=== PATIENT | male | born 1965 ===

== ENCOUNTER 2018-05-05 11:44 | Inpatient (IN) ==
[2018-05-05] MEDS ORDERED: PIPERACILLIN/TAZOBACTAM 3,375 MG in SODIUM CHLORIDE 0.9% 100 ML IV ONE (12:16)
[2018-05-05] MEDS ORDERED: traZODone 50 MG TABLET PO PRN (12:38)
[2018-05-05] MEDS ORDERED: GLUCAGON 1 MG VIAL IM PRN (12:38)
[2018-05-05] MEDS ORDERED: ONDANSETRON 4 MG/2 ML VIAL IV PRN (12:38)
[2018-05-05] MEDS ORDERED: DOCUSATE SODIUM 100 MG CAPSULE PO PRN (12:38)
[2018-05-05] MEDS ORDERED: DEXTROSE 50% 25 GM/50 ML VIAL IV PRN (12:38)
[2018-05-05 14:09] LABS: Basophils # 0.1 10*3/uL (0.0-0.2); Basophils % 0.3 % (0.0-0.8); Eosinophils % 0.1 % (0.00-10.9); Hematocrit 38.7 VOL% (42.0-52.0); Hemoglobin 12.3 GM/DL (14.0-18.0); Immature Granulocytes % 0.6 %; Immature Granulocytes Absolute 0.11 #; Lymphocytes # 1.2 10*3/uL (1.4-4.0); Lymphocytes % 6.6 % (21.2-54.2); Mean Corpuscular HGB Conc 31.8 GM/DL (32-36); Mean Corpuscular Hemoglobin 31 PG (27-34); Mean Platelet Volume 9.9 FL (9.6-12.0); Monocytes # 1.2 10*3/uL (0.11-0.8); Monocytes % 6.5 % (1.7-12.7); Neutrophils # 15.3 10*3/uL (1.4-7.4); Neutrophils % 85.9 % (38.7-73.9); Platelet Count 150 T/CUMM (130-400); Red Blood Count 3.99 MC/CUMM (3.8-5.5); Red Cell Distribution Width 14.2 % (9.3-17.3); White Blood Count 17.8 T/CUMM (4-12)
[2018-05-05 14:40] LABS: Albumin 3.4 G/DL (3.4-5.0); Bilirubin,Total 0.5 MG/DL (0.2-1.0); Calcium 9.1 MG/DL (8.5-10.1); Osmolality,Calculated 286.1 MOS/KG (273-304); Total Protein 9.1 G/DL (6.4-8.3)
[2018-05-05 14:46] LABS: Potassium 6.7 MMOL/L (3.5-5.1)
[2018-05-05] MEDS: INSULIN LISPRO 100 UNIT/ML SUBCUT SCH ×2 (16:53→21:17)
[2018-05-06] MEDS ORDERED: cefOXitin 2,000 MG in SYRINGE 1 EACH IV ONE (06:00)
[2018-05-06 07:10] LABS: Calcium 9.2 MG/DL (8.5-10.1); Osmolality,Calculated 282.8 MOS/KG (273-304); Potassium 4.4 MMOL/L (3.5-5.1)
[2018-05-06] MEDS: INSULIN LISPRO 100 UNIT/ML SUBCUT SCH ×4 (07:40→22:13)
[2018-05-06] MEDS: amLODIPine 2.5 MG TABLET PO SCH (08:39)
[2018-05-06] MEDS: PANTOPRAZOLE 40 MG TABLET PO SCH (08:39)
[2018-05-06] MEDS ORDERED: TISSUE ADHESIVE 1 EACH APPLICATOR TOP ONE (09:06)
[2018-05-06] MEDS ORDERED: ETOMIDATE 40 MG/20 ML VIAL IV ONE (09:35)
[2018-05-06] MEDS ORDERED: SEVOFLURANE 1 UNIT/15 MINUTE INH ONE (09:35)
[2018-05-06] MEDS ORDERED: fentaNYL 100 MCG/2 ML VIAL ONE (09:35)
[2018-05-06] MEDS ORDERED: ROCURONIUM 100 MG/10 ML VIAL IV ONE (09:36)
[2018-05-06] MEDS ORDERED: ACETAMINOPHEN 1,000 MG/100 ML VIAL IV ONE (09:36)
[2018-05-06] MEDS ORDERED: SODIUM CHLORIDE 0.9% 500 ML IV ONE (09:36)
[2018-05-06] MEDS ORDERED: ONDANSETRON 4 MG/2 ML VIAL ONE (09:45)
[2018-05-06] MEDS ORDERED: ONDANSETRON 4 MG/2 ML VIAL IV PRN (09:47)
[2018-05-06] MEDS: HYDROmorphone 2 MG/1 ML VIAL IV PRN ×3 (09:52→10:04)
[2018-05-06] MEDS: ACETAMINOPHEN 325 MG TABLET PO PRN ×2 (11:17→16:47)
[2018-05-06] MEDS: AMOXICILLIN/CLAV 875 MG TABLET PO SCH ×2 (11:17→22:12)
[2018-05-07 05:06] LABS: Basophils # 0.1 10*3/uL (0.0-0.2); Basophils % 0.4 % (0.0-0.8); Eosinophils # 0.1 10*3/uL (0.0-0.87); Eosinophils % 0.4 % (0.00-10.9); Hematocrit 40.6 VOL% (42.0-52.0); Hemoglobin 12.7 GM/DL (14.0-18.0); Immature Granulocytes % 0.6 %; Immature Granulocytes Absolute 0.08 #; Lymphocytes # 0.9 10*3/uL (1.4-4.0); Lymphocytes % 6.7 % (21.2-54.2); Mean Corpuscular HGB Conc 31.3 GM/DL (32-36); Mean Corpuscular Hemoglobin 31 PG (27-34); Mean Corpuscular Volume 97.8 FL (87-102); Mean Platelet Volume 10.1 FL (9.6-12.0); Monocytes # 1.3 10*3/uL (0.11-0.8); Monocytes % 9.3 % (1.7-12.7); Neutrophils # 11.2 10*3/uL (1.4-7.4); Neutrophils % 82.6 % (38.7-73.9); Platelet Count 171 T/CUMM (130-400); Red Blood Count 4.15 MC/CUMM (3.8-5.5); Red Cell Distribution Width 14.1 % (9.3-17.3); White Blood Count 13.5 T/CUMM (4-12)
[2018-05-07] MEDS: INSULIN LISPRO 100 UNIT/ML SUBCUT SCH ×2 (07:30→13:16)
[2018-05-07] MEDS: PANTOPRAZOLE 40 MG TABLET PO SCH (09:29)
[2018-05-07] MEDS: amLODIPine 2.5 MG TABLET PO SCH (10:49)
[2018-05-07 11:57] VITALS: BP 128/69
[2018-05-07] MEDS ORDERED: AMOXICILLIN/CLAV 500 MG TABLET PO SCH (17:00)
== END 2018-05-07 12:41 | disposition home or self-care (01) | DRG 338 ==
LOC: EDBD → EDUNIT# → N.ED 11:44 → N.EDINP 12:38 → SUATTDRO 12:38 → N.2E 13:27
PROVIDERS: ADMIT Internal Medicine; ATTEND Internal Medicine Nephrology

== ENCOUNTER 2018-11-01 13:07 | Inpatient (IN) ==
[~2018-11-01 13:07] MED LIST: FAMOTIDINE 20 MG/2 ML VIAL IV ONE; HEPARIN/NACL 0.9% 2 UNITS/ML 1,500 ML IV ONE; HYDROmorphone 2 MG/1 ML VIAL ONE; LIDOCAINE 1% 20 ML VIAL ONE; MIDAZOLAM 2 MG/2 ML VIAL ONE; NITROGLYCERIN DRIP 0 MG/0 ML BOTTLE IV ONE; VERAPAMIL 5 MG/2 ML VIAL ONE; diphenhydrAMINE 50 MG/1 ML VIAL ONE; methylPREDNISolone SOD SUC 125 MG/2 ML VIAL ONE
[2018-11-01] MEDS ORDERED: NITROGLYCERIN SL 0.4 MG TABLET SL PRN (13:22)
[2018-11-01] MEDS ORDERED: DEXTROSE 50% 25 GM/50 ML VIAL IV PRN (13:22)
[2018-11-01] MEDS ORDERED: GLUCAGON 1 MG VIAL IM PRN (13:22)
[2018-11-01] MEDS: HEPARIN DRIP 25,000 UNITS/500 ML PREMIX IV SCH (13:45)
[2018-11-01] MEDS ORDERED: MAGNESIUM SULF RIDER 2 GM in PREMIX 1 EACH IV PRN (14:09)
[2018-11-01] MEDS ORDERED: ACETAMINOPHEN 325 MG TABLET PO PRN (14:09)
[2018-11-01] MEDS ORDERED: POTASSIUM CHLORIDE RIDER 10 MEQ in PREMIX 1 EACH IV PRN (14:09)
[2018-11-01] MEDS ORDERED: MORPHINE 4 MG/1 ML VIAL IV PRN (14:09)
[2018-11-01] MEDS ORDERED: ONDANSETRON 4 MG/2 ML VIAL IV PRN (14:09)
[2018-11-01] MEDS ORDERED: MAGNESIUM SULF RIDER 4 GM in PREMIX 1 EACH IV PRN (14:09)
[2018-11-01] MEDS: INSULIN LISPRO 100 UNIT/ML SUBCUT SCH ×2 (16:53→20:09)
[2018-11-01] MEDS: PANTOPRAZOLE 40 MG TABLET PO SCH (16:58)
[2018-11-01 17:24] LABS: Albumin 3.8 G/DL (3.4-5.0); Bilirubin,Total 0.8 MG/DL (0.2-1.0); Calcium 8.9 MG/DL (8.5-10.1); Osmolality,Calculated 274.1 MOS/KG (273-304); Total Protein 8.9 G/DL (6.4-8.3)
[2018-11-01] MEDS ORDERED: ISOSORBIDE MONONITRATE 30 MG TABLET PO SCH (18:00)
[2018-11-01] MEDS: ZALEPLON 5 MG CAPSULE PO PRN (20:08)
[2018-11-01] MEDS: ROSUVASTATIN 20 MG TABLET PO SCH (20:08)
[2018-11-01] MEDS: ASCORBIC ACID 500 MG TABLET PO SCH (20:08)
[2018-11-01] MEDS ORDERED: CARVEDILOL 6.25 MG TABLET PO SCH (21:00)
[2018-11-01] MEDS ORDERED: RANOLAZINE 500 MG TABLET PO SCH (21:00)
[2018-11-02 06:04] LABS: Basophils % 0.3 % (0.0-0.8); Hematocrit 35.6 VOL% (42.0-52.0); Hemoglobin 11.3 GM/DL (14.0-18.0); Immature Granulocytes % 0.6 %; Immature Granulocytes Absolute 0.05 #; Lymphocytes # 0.8 10*3/uL (1.4-4.0); Lymphocytes % 9.1 % (21.2-54.2); Mean Corpuscular HGB Conc 31.7 GM/DL (32-36); Mean Corpuscular Volume 98.1 FL (87-102); Mean Platelet Volume 11.1 FL (9.6-12.0); Monocytes % 9.4 % (1.7-12.7); Neutrophils % 80.6 % (38.7-73.9); Platelet Count 133 T/CUMM (130-400); Red Blood Count 3.63 MC/CUMM (3.8-5.5); Red Cell Distribution Width 14.5 % (9.3-17.3); White Blood Count 8.6 T/CUMM (4-12)
[2018-11-02 06:46] LABS: Calcium 8.6 MG/DL (8.5-10.1); Osmolality,Calculated 279.1 MOS/KG (273-304); Risk Ratio 3.28; Thyroid Stimulating Hormone 0.524 uIU/ml (0.358-3.74); Total Protein 7.6 G/DL (6.4-8.3); VLDL CHOLESTEROL 23.4 MG/DL
[2018-11-02 06:59] LABS: CKMB % 3.8 %
[2018-11-02 07:04] LABS: Troponin I 31.4 NG/ML (0.00-0.045)
[2018-11-02] MEDS ORDERED: HEPARIN 5,000 UNIT/1 ML VIAL IV ONE (07:32)
[2018-11-02] MEDS: INSULIN LISPRO 100 UNIT/ML SUBCUT SCH ×4 (08:37→21:35)
[2018-11-02] MEDS: ASPIRIN EC 81 MG TABLET PO SCH (09:40)
[2018-11-02] MEDS: ASCORBIC ACID 500 MG TABLET PO SCH ×2 (09:41→21:34)
[2018-11-02] MEDS: PANTOPRAZOLE 40 MG TABLET PO SCH (09:41)
[2018-11-02] MEDS: CARVEDILOL 3.125 MG TABLET PO SCH ×2 (10:06→21:35)
[2018-11-02] MEDS: HEPARIN DRIP 25,000 UNITS/500 ML PREMIX IV SCH (12:11)
[2018-11-02] MEDS ORDERED: SODIUM CHLORIDE 0.9% 500 ML IV ONE (12:32)
[2018-11-02] MEDS: ROSUVASTATIN 20 MG TABLET PO SCH (21:34)
[2018-11-02] MEDS: ZALEPLON 5 MG CAPSULE PO PRN (21:42)
[2018-11-03 02:26] LABS: Basophils # 0.1 10*3/uL (0.0-0.2); Basophils % 0.6 % (0.0-0.8); Eosinophils # 0.1 10*3/uL (0.0-0.87); Eosinophils % 1.3 % (0.00-10.9); Hematocrit 33.9 VOL% (42.0-52.0); Hemoglobin 10.6 GM/DL (14.0-18.0); Immature Granulocytes % 0.8 %; Immature Granulocytes Absolute 0.07 #; Lymphocytes # 1.3 10*3/uL (1.4-4.0); Lymphocytes % 14.8 % (21.2-54.2); Mean Corpuscular HGB Conc 31.3 GM/DL (32-36); Mean Corpuscular Volume 98.8 FL (87-102); Monocytes % 9.1 % (1.7-12.7); NRBC # 0.02 10*3/uL; Neutrophils % 73.4 % (38.7-73.9); Platelet Count 134 T/CUMM (130-400); Red Blood Count 3.43 MC/CUMM (3.8-5.5); Red Cell Distribution Width 14.7 % (9.3-17.3); White Blood Count 8.7 T/CUMM (4-12)
[2018-11-03 02:41] LABS: Calcium 8.1 MG/DL (8.5-10.1); Osmolality,Calculated 277.7 MOS/KG (273-304)
[2018-11-03] MEDS: HEPARIN DRIP 25,000 UNITS/500 ML PREMIX IV SCH ×2 (04:40→14:04)
[2018-11-03] MEDS: INSULIN LISPRO 100 UNIT/ML SUBCUT SCH ×4 (07:04→21:20)
[2018-11-03] MEDS: ASPIRIN EC 81 MG TABLET PO SCH (08:23)
[2018-11-03] MEDS: CARVEDILOL 3.125 MG TABLET PO SCH ×2 (08:24→21:19)
[2018-11-03] MEDS: ASCORBIC ACID 500 MG TABLET PO SCH ×2 (08:24→21:19)
[2018-11-03] MEDS: PANTOPRAZOLE 40 MG TABLET PO SCH (08:24)
[2018-11-03] MEDS ORDERED: BISACODYL 5 MG TABLET PO PRN (08:48)
[2018-11-03] MEDS: ROSUVASTATIN 20 MG TABLET PO SCH (21:19)
[2018-11-03] MEDS: ZALEPLON 5 MG CAPSULE PO PRN ×2 (21:19→21:20)
[2018-11-04] MEDS: HEPARIN DRIP 25,000 UNITS/500 ML PREMIX IV SCH (01:39)
[2018-11-04 05:01] LABS: Basophils % 0.6 % (0.0-0.8); Eosinophils # 0.1 10*3/uL (0.0-0.87); Eosinophils % 1.6 % (0.00-10.9); Hematocrit 35.6 VOL% (42.0-52.0); Hemoglobin 11.3 GM/DL (14.0-18.0); Immature Granulocytes % 0.7 %; Immature Granulocytes Absolute 0.05 #; Lymphocytes % 14.1 % (21.2-54.2); Mean Corpuscular HGB Conc 31.7 GM/DL (32-36); Mean Corpuscular Volume 97.5 FL (87-102); Mean Platelet Volume 10.7 FL (9.6-12.0); Monocytes % 11.2 % (1.7-12.7); Neutrophils % 71.8 % (38.7-73.9); Platelet Count 151 T/CUMM (130-400); Red Blood Count 3.65 MC/CUMM (3.8-5.5); Red Cell Distribution Width 14.6 % (9.3-17.3); White Blood Count 7.1 T/CUMM (4-12)
[2018-11-04 05:20] LABS: Osmolality,Calculated 280.8 MOS/KG (273-304)
[2018-11-04] MEDS ORDERED: DEXTROSE 50% 25 GM/50 ML VIAL IV PRN (07:19)
[2018-11-04] MEDS ORDERED: GLUCAGON 1 MG VIAL IM PRN (07:19)
[2018-11-04] MEDS ORDERED: SODIUM CHLORIDE 0.9% 1,000 ML IV SCH (07:30)
[2018-11-04] MEDS: INSULIN LISPRO 100 UNIT/ML SUBCUT SCH ×4 (07:58→21:27)
[2018-11-04] MEDS: CHLORHEXIDINE 0.12% ORAL RINSE 60 ML BOTTLE SWISH/SPIT SCH ×2 (09:22→21:27)
[2018-11-04] MEDS: PANTOPRAZOLE 40 MG TABLET PO SCH (09:22)
[2018-11-04] MEDS: ASPIRIN EC 81 MG TABLET PO SCH (09:22)
[2018-11-04] MEDS: CARVEDILOL 3.125 MG TABLET PO SCH ×2 (09:22→21:26)
[2018-11-04] MEDS: ASCORBIC ACID 500 MG TABLET PO SCH ×2 (09:23→21:26)
[2018-11-04 09:33] LABS: ABG Base Excess 2.8 MMOL/L (-2.5-2.5); ABG HCO3 26.8 MMOL/L (20-26); ABG Oxygen Saturation 94.4 % (95-100); ABG PCO2 34.6 MM HG (35-48); ABG PH 7.482 (7.35-7.45); ABG PO2 67.7 MM HG (80-95); ABG TCO2 23.1 MMOL/L (23-27); Allen Test Positive; Pt O2 Delivery Device Room Air
[2018-11-04] MEDS: CHLORHEXIDINE 4% SOLN 118 ML BOTTLE TOP SCH ×2 (14:12→21:26)
[2018-11-04] MEDS: ROSUVASTATIN 20 MG TABLET PO SCH (21:26)
[2018-11-04] MEDS: ZALEPLON 5 MG CAPSULE PO PRN (21:29)
[2018-11-05] MEDS: ZALEPLON 5 MG CAPSULE PO PRN (00:18)
[2018-11-05] MEDS ORDERED: VANCOMYCIN 1,000 MG VIAL ONE (04:40)
[2018-11-05] MEDS ORDERED: PAPAVERINE 60 MG/2 ML VIAL ONE (04:40)
[2018-11-05 05:01] LABS: Basophils % 0.4 % (0.0-0.8); Eosinophils # 0.1 10*3/uL (0.0-0.87); Eosinophils % 1.7 % (0.00-10.9); Hematocrit 33.2 VOL% (42.0-52.0); Hemoglobin 10.3 GM/DL (14.0-18.0); Immature Granulocytes % 0.7 %; Immature Granulocytes Absolute 0.05 #; Lymphocytes # 0.9 10*3/uL (1.4-4.0); Lymphocytes % 12.1 % (21.2-54.2); Mean Corpuscular Volume 98.2 FL (87-102); Mean Platelet Volume 10.3 FL (9.6-12.0); Neutrophils % 76.1 % (38.7-73.9); Platelet Count 147 T/CUMM (130-400); Red Blood Count 3.38 MC/CUMM (3.8-5.5); Red Cell Distribution Width 14.8 % (9.3-17.3); White Blood Count 7.5 T/CUMM (4-12)
[2018-11-05] MEDS: CHLORHEXIDINE 4% SOLN 118 ML BOTTLE TOP SCH ×2 (05:15→14:31)
[2018-11-05 05:18] LABS: Calcium 9.1 MG/DL (8.5-10.1)
[2018-11-05] MEDS ORDERED: SUFentanil 250 MCG/5 ML AMP ONE (05:38)
[2018-11-05] MEDS ORDERED: MIDAZOLAM 10 MG/2 ML VIAL ONE (05:38)
[2018-11-05] MEDS ORDERED: AMINOCAPROIC ACID 5,000 MG/20 ML VIAL ONE (05:38)
[2018-11-05] MEDS ORDERED: DIAZEPAM 5 MG TABLET PO ONE (06:00)
[2018-11-05] MEDS ORDERED: CEFUROXIME INJ 1,500 MG in SYRINGE 1 EACH IV ONE (06:30)
[2018-11-05] MEDS ORDERED: NITROGLYCERIN DRIP 50 MG/250 ML BOTTLE IV ONE (06:38)
[2018-11-05] MEDS ORDERED: PHENYLEPHRINE 1 MG/10 ML SYRINGE IV ONE (06:38)
[2018-11-05] MEDS ORDERED: PHENYLEPHRINE DRIP 20 MG/250 ML PREMIX IV ONE (06:38)
[2018-11-05] MEDS ORDERED: HEPARIN/NACL 0.9% 2 UNITS/ML 500 ML IV ONE (06:38)
[2018-11-05 07:52] LABS: ABG Base Excess -0.5 MMOL/L (-2.5-2.5); ABG PCO2 33.3 MM HG (35-48); ABG PH 7.446 (7.35-7.45); ABG TCO2 20.6 MMOL/L (23-27); Glucose Heart Surgery 95 MG/DL (74-106); Hematocrit Heart Surgery 33.4 PERCENT (42-52); Hemoglobin Heart Surgery 10.8 G/DL (14.0-18.0); Ionized Calcium Arterial 1.09 MMOL/L (1.21-1.46); PCO2 Patient Temp Arterial 33.3 MMHG; PH Patient Temp Arterial 7.446; Patient Temperature 37 CELCIUS; Potassium Heart/CVR 4.1 MMOL/L (3.5-5.1); Sodium Heart/CVR 135 MMOL/L (135-145)
[2018-11-05] MEDS ORDERED: SODIUM BICARBONATE 50 MEQ/50 ML VIAL IV ONE ×6 (09:05→18:30)
[2018-11-05] MEDS ORDERED: NITROPRUSSIDE 50 MG/2 ML VIAL ONE (09:05)
[2018-11-05] MEDS ORDERED: PHENYLEPHRINE DRIP 40 MG/250 ML PREMIX IV ONE (09:05)
[2018-11-05] MEDS ORDERED: POTASSIUM CHLORIDE RIDER 100 ML IV ONE (09:05)
[2018-11-05] MEDS ORDERED: CALCIUM CHLORIDE 1,000 MG/10 ML SYRINGE IV ONE (09:05)
[2018-11-05 09:36] LABS: Hemoglobin Heart Surgery 7.8 G/DL (14.0-18.0); PCO2 Patient Temp Venous 25.8 MM HG; PH Patient Temp Venous 7.54; PO2 Patient Temp Venous 40.3 MM HG; Potassium Heart/CVR 4.9 MMOL/L (3.5-5.1); VBG Base Excess -0.8 MEQ/L (0-4); VBG HCO3 22.1 MEQ/L (24-28); VBG Oxygen Saturation 84.8 %; VBG PCO2 29.4 MMHG (41-51); VBG PH 7.494; VBG PO2 49.7 MMHG (17-40)
[2018-11-05] MEDS ORDERED: ALBUMIN 5% 12.5 GM/250 ML VIAL IV ONE ×2 (09:40→10:27)
[2018-11-05] MEDS ORDERED: DOBUTamine 500 MG/250 ML PREMIX IV ONE ×2 (09:57→11:49)
[2018-11-05 10:04] LABS: PCO2 Patient Temp Venous 27.6 MM HG; PH Patient Temp Venous 7.448; Potassium Heart/CVR 4.1 MMOL/L (3.5-5.1); VBG Base Excess -4.6 MEQ/L (0-4); VBG HCO3 18.7 MEQ/L (24-28); VBG Oxygen Saturation 78.5 %; VBG PCO2 27.6 MMHG (41-51); VBG PH 7.448
[2018-11-05] MEDS ORDERED: MANNITOL 100 GM/500 ML BAG IV ONE (10:26)
[2018-11-05] MEDS ORDERED: DEXTROSE 5% KCL 20 MEQ 20 MEQ/1,000 ML BAG IV ONE (10:26)
[2018-11-05] MEDS ORDERED: HEPARIN 10,000 UNIT/10 ML VIAL ONE (10:27)
[2018-11-05] MEDS ORDERED: FUROSEMIDE 20 MG/2 ML VIAL ONE (10:27)
[2018-11-05] MEDS ORDERED: PROTAMINE SULFATE 50 MG/5 ML VIAL IV ONE (10:28)
[2018-11-05] MEDS ORDERED: PROTAMINE SULFATE 250 MG/25 ML VIAL IV ONE (10:28)
[2018-11-05] MEDS ORDERED: methylPREDNISolone SOD SUC 1,000 MG/8 ML VIAL ONE (10:28)
[2018-11-05] MEDS ORDERED: MAGNESIUM SULFATE 5 GM/10 ML VIAL IV ONE (10:28)
[2018-11-05 11:13] LABS: ABG Base Excess -4.7 MMOL/L (-2.5-2.5); ABG HCO3 20.5 MMOL/L (20-26); ABG PCO2 34.2 MM HG (35-48); ABG PH 7.373 (7.35-7.45); ABG TCO2 18.6 MMOL/L (23-27); Glucose Heart Surgery 164 MG/DL (74-106); Hematocrit Heart Surgery 25.1 PERCENT (42-52); Hemoglobin Heart Surgery 8.1 G/DL (14.0-18.0); Ionized Calcium Arterial 1.09 MMOL/L (1.21-1.46); PCO2 Patient Temp Arterial 34.2 MMHG; PH Patient Temp Arterial 7.373; Patient Temperature 37 CELCIUS; Potassium Heart/CVR 4.4 MMOL/L (3.5-5.1); Sodium Heart/CVR 134 MMOL/L (135-145)
[2018-11-05] MEDS ORDERED: THROMBIN TOPICAL (RECOMBINANT) 5,000 UNIT VIAL TOP ONE (11:35)
[2018-11-05] MEDS ORDERED: AMIODARONE 450 MG/9 ML VIAL IV ONE (11:48)
[2018-11-05] MEDS ORDERED: EPINEPHrine 1 MG/ML VIAL ONE (12:10)
[2018-11-05] MEDS: PHENYLEPHRINE DRIP 40 MG/250 ML PREMIX IV PRN ×2 (12:35→17:00)
[2018-11-05] MEDS ORDERED: CALCIUM CHLORIDE 1,000 MG/10 ML SYRINGE IV PRN (12:47)
[2018-11-05] MEDS ORDERED: INSULIN REGULAR 100 UNIT/ML IV ONE (12:47)
[2018-11-05] MEDS ORDERED: DEXTROSE 50% 25 GM/50 ML VIAL IV PRN ×2 (12:47)
[2018-11-05] MEDS ORDERED: MIDAZOLAM 10 MG/2 ML VIAL IV PRN (12:47)
[2018-11-05] MEDS ORDERED: MAGNESIUM SULF RIDER 4 GM in PREMIX 1 EACH IV PRN (12:47)
[2018-11-05] MEDS ORDERED: ACETAMINOPHEN 650 MG SUPP RECTAL PRN (12:47)
[2018-11-05] MEDS ORDERED: MAGNESIUM SULF RIDER 2 GM in PREMIX 1 EACH IV PRN (12:47)
[2018-11-05] MEDS ORDERED: VECURONIUM 10 MG VIAL IV PRN ×2 (12:47)
[2018-11-05] MEDS ORDERED: ONDANSETRON 4 MG/2 ML VIAL IV PRN (12:47)
[2018-11-05] MEDS ORDERED: NITROPRUSSIDE 100 MG in DEXTROSE 5% 250 ML IV PRN (12:47)
[2018-11-05] MEDS ORDERED: LACTATED RINGERS 250 ML IV PRN (12:47)
[2018-11-05] MEDS ORDERED: MORPHINE 10 MG/1 ML VIAL IV PRN (12:47)
[2018-11-05 12:54] LABS: ABG Base Excess -3.1 MMOL/L (-2.5-2.5); ABG HCO3 21.8 MMOL/L (20-26); ABG Oxygen Saturation 99.4 % (95-100); ABG PCO2 33.3 MM HG (35-48); ABG PH 7.408 (7.35-7.45); ABG TCO2 19.6 MMOL/L (23-27); Glucose Heart Surgery 243 MG/DL (74-106); Hematocrit Heart Surgery 24.6 PERCENT (42-52); Hemoglobin Heart Surgery 7.9 G/DL (14.0-18.0); Potassium Heart/CVR 4.8 MMOL/L (3.5-5.1)
[2018-11-05] MEDS ORDERED: SEVOFLURANE 1 UNIT/15 MINUTE INH ONE (13:00)
[2018-11-05] MEDS ORDERED: ePHEDrine 50 MG/ML AMP ONE (13:00)
[2018-11-05] MEDS ORDERED: AMIODARONE INJ 450 MG in DEXTROSE 5% 241 ML IV SCH (13:00)
[2018-11-05] MEDS ORDERED: CALCIUM CHLORIDE 1,000 MG/10 ML VIAL IV ONE (13:00)
[2018-11-05] MEDS ORDERED: EPINEPHrine 1 MG/10 ML SYRINGE ONE (13:00)
[2018-11-05] MEDS ORDERED: SODIUM CHLORIDE 0.9% 200 ML IV ONE (13:01)
[2018-11-05] MEDS ORDERED: ETOMIDATE 40 MG/20 ML VIAL IV ONE (13:01)
[2018-11-05] MEDS ORDERED: AMIODARONE 150 MG/3 ML VIAL ONE ×2 (13:01→18:45)
[2018-11-05] MEDS ORDERED: SODIUM CHLORIDE 0.9% 250 ML IV ONE (13:01)
[2018-11-05] MEDS ORDERED: GLYCOPYRROLATE 0.4 MG/2 ML VIAL ONE (13:01)
[2018-11-05] MEDS ORDERED: SODIUM CHLORIDE 0.9% 1,000 ML IV ONE (13:01)
[2018-11-05 13:10] LABS: Troponin I 19.4 NG/ML (0.00-0.045)
[2018-11-05 13:17] LABS: Albumin 2.9 G/DL (3.4-5.0); Bilirubin,Total 0.9 MG/DL (0.2-1.0); Calcium 7.9 MG/DL (8.5-10.1); Osmolality,Calculated 290.8 MOS/KG (273-304)
[2018-11-05 13:35] LABS: Basophils % 0.3 % (0.0-0.8); Eosinophils # 0.1 10*3/uL (0.0-0.87); Eosinophils % 0.5 % (0.00-10.9); Hematocrit 24.1 VOL% (42.0-52.0); Hemoglobin 7.6 GM/DL (14.0-18.0); Immature Granulocytes % 1.2 %; Immature Granulocytes Absolute 0.18 #; Lymphocytes # 1.6 10*3/uL (1.4-4.0); Lymphocytes % 10.6 % (21.2-54.2); Mean Corpuscular HGB Conc 31.5 GM/DL (32-36); Mean Corpuscular Volume 100.8 FL (87-102); Monocytes % 6.1 % (1.7-12.7); Neutrophils % 81.3 % (38.7-73.9); Platelet Count 139 T/CUMM (130-400); Red Blood Count 2.39 MC/CUMM (3.8-5.5)
[2018-11-05 14:12] LABS: INR 1.2; PT Patient Result 13.1 SECS; Partial Thromboplastin Time 27.9 SECS (0-40)
[2018-11-05] MEDS: INSULIN LISPRO 100 UNIT/ML SUBCUT SCH ×2 (14:29→14:30)
[2018-11-05] MEDS: ASPIRIN EC 81 MG TABLET PO SCH (14:30)
[2018-11-05] MEDS: ASCORBIC ACID 500 MG TABLET PO SCH (14:31)
[2018-11-05] MEDS: PANTOPRAZOLE 40 MG TABLET PO SCH (14:31)
[2018-11-05] MEDS: CHLORHEXIDINE 0.12% ORAL RINSE 60 ML BOTTLE SWISH/SPIT SCH ×2 (14:31→21:44)
[2018-11-05] MEDS: CARVEDILOL 3.125 MG TABLET PO SCH (14:31)
[2018-11-05] MEDS: SODIUM CHLORIDE 0.45% 1,000 ML IV SCH ×2 (14:33)
[2018-11-05] MEDS ORDERED: SODIUM BICARB INJ 150 MEQ in STERILE WATER INJ 850 ML IV SCH (15:00)
[2018-11-05] MEDS: INSULIN REGULAR DRIP 100 ML IV SCH ×2 (15:04→20:51)
[2018-11-05] MEDS: INSULIN REGULAR 100 UNIT/ML IV PRN ×3 (15:48→20:05)
[2018-11-05] MEDS ORDERED: VECURONIUM 10 MG VIAL IV ONE (16:18)
[2018-11-05] MEDS ORDERED: methylPREDNISolone SOD SUC 125 MG/2 ML VIAL IV ONE (16:21)
[2018-11-05 16:23] LABS: ABG Base Excess -11.9 MMOL/L (-2.5-2.5); ABG HCO3 14.4 MMOL/L (20-26); ABG Oxygen Saturation 96.7 % (95-100); ABG PCO2 34.3 MM HG (35-48); ABG PH 7.242 (7.35-7.45); ABG PO2 110.6 MM HG (80-95); ABG TCO2 15.5 MMOL/L (23-27)
[2018-11-05 16:54] LABS: ABG HCO3 14.4 MMOL/L (20-26); ABG PCO2 34.3 MM HG (35-48); ABG PH 7.242 (7.35-7.45); ABG PO2 110.6 MM HG (80-95)
[2018-11-05 16:55] LABS: ABG Base Excess -11.9 MMOL/L (-2.5-2.5); ABG Oxygen Saturation 96.7 % (95-100); ABG TCO2 15.5 MMOL/L (23-27)
[2018-11-05 16:56] LABS: Glucose Heart Surgery 312 MG/DL (74-106); Potassium Heart/CVR 4.5 MMOL/L (3.5-5.1)
[2018-11-05 17:50] LABS: ABG Base Excess -9.9 MMOL/L (-2.5-2.5); ABG HCO3 16.5 MMOL/L (20-26); ABG Oxygen Saturation 97.1 % (95-100); ABG PCO2 32.2 MM HG (35-48); ABG PH 7.295 (7.35-7.45); ABG TCO2 14.4 MMOL/L (23-27); Glucose Heart Surgery 316 MG/DL (74-106); Hematocrit Heart Surgery 32.4 PERCENT (42-52); Hemoglobin Heart Surgery 10.5 G/DL (14.0-18.0); Potassium Heart/CVR 4.2 MMOL/L (3.5-5.1)
[2018-11-05] MEDS: MIDAZOLAM 2 MG/2 ML VIAL IV PRN ×2 (18:00→22:11)
[2018-11-05] MEDS ORDERED: AMIODARONE INJ 50 MG in DEXTROSE 5% 100 ML IV ONE (18:44)
[2018-11-05] MEDS: POTASSIUM CHLORIDE RIDER 10 MEQ in PREMIX 1 EACH IV PRN ×2 (18:50→22:14)
[2018-11-05] MEDS: AMIODARONE INJ 450 MG in DEXTROSE 5% 241 ML IV SCH (19:00)
[2018-11-05 19:16] LABS: ABG Base Excess -6.3 MMOL/L (-2.5-2.5); ABG HCO3 19.3 MMOL/L (20-26); ABG Oxygen Saturation 97.5 % (95-100); ABG PCO2 35.3 MM HG (35-48); ABG PH 7.336 (7.35-7.45); ABG TCO2 17.3 MMOL/L (23-27); Glucose Heart Surgery 311 MG/DL (74-106); Hematocrit Heart Surgery 31.2 PERCENT (42-52); Hemoglobin Heart Surgery 10.1 G/DL (14.0-18.0); Potassium Heart/CVR 3.9 MMOL/L (3.5-5.1)
[2018-11-05] MEDS ORDERED: SODIUM BICARBONATE 50 MEQ/50 ML VIAL IV PRN (19:32)
[2018-11-05] MEDS: POTASSIUM CHLORIDE RIDER 20 MEQ in PREMIX 1 EACH IV PRN ×2 (20:20→21:43)
[2018-11-05] MEDS: MORPHINE 4 MG/1 ML VIAL IV PRN (20:34)
[2018-11-05] MEDS: PHENYLEPHRINE INJ 160 MG in SODIUM CHLORIDE 0.9% 234 ML IV PRN (20:54)
[2018-11-05 21:02] LABS: ABG Base Excess -5.7 MMOL/L (-2.5-2.5); ABG HCO3 19.8 MMOL/L (20-26); ABG Oxygen Saturation 98.3 % (95-100); ABG PCO2 33.1 MM HG (35-48); ABG PH 7.365 (7.35-7.45); ABG TCO2 17.2 MMOL/L (23-27); Glucose Heart Surgery 269 MG/DL (74-106); Hematocrit Heart Surgery 31.5 PERCENT (42-52); Hemoglobin Heart Surgery 10.2 G/DL (14.0-18.0); Potassium Heart/CVR 3.9 MMOL/L (3.5-5.1)
[2018-11-05] MEDS: CEFUROXIME INJ 1,500 MG in SYRINGE 1 EACH IV SCH (21:44)
[2018-11-05] MEDS: DORZOLAMIDE/TIMOLOL OPH SOLN 10 ML BOTTLE BOTH EYES SCH (21:44)
[2018-11-05] MEDS: LATANOPROST 0.005% OPH SOLN 2.5 ML BOTTLE LEFT EYE SCH (21:45)
[2018-11-05 22:15] LABS: CKMB % 3.9 %
[2018-11-05 22:18] LABS: Troponin I 25.2 NG/ML (0.00-0.045)
[2018-11-06] MEDS ORDERED: methylPREDNISolone SOD SUC 125 MG/2 ML VIAL IV ONE
[2018-11-06 00:09] LABS: ABG HCO3 20.7 MMOL/L (20-26); ABG Oxygen Saturation 97.7 % (95-100); ABG PH 7.416 (7.35-7.45); ABG PO2 114.1 MM HG (80-95); ABG TCO2 21.7 MMOL/L (23-27); Glucose Heart Surgery 191 MG/DL (74-106); Hemoglobin Heart Surgery 12.9 G/DL (14.0-18.0); Potassium Heart/CVR 3.9 MMOL/L (3.5-5.1)
[2018-11-06] MEDS: POTASSIUM CHLORIDE RIDER 20 MEQ in PREMIX 1 EACH IV PRN ×2 (00:20→04:14)
[2018-11-06] MEDS: POTASSIUM CHLORIDE RIDER 10 MEQ in PREMIX 1 EACH IV PRN (00:52)
[2018-11-06 04:08] LABS: ABG HCO3 25.1 MMOL/L (20-26); ABG Oxygen Saturation 97.7 % (95-100); ABG PCO2 33.4 MM HG (35-48); ABG PH 7.494 (7.35-7.45); ABG PO2 107.8 MM HG (80-95); ABG TCO2 26.1 MMOL/L (23-27); Glucose Heart Surgery 113 MG/DL (74-106); Hemoglobin Heart Surgery 9.7 G/DL (14.0-18.0); Potassium Heart/CVR 4.3 MMOL/L (3.5-5.1)
[2018-11-06] MEDS: INSULIN REGULAR DRIP 100 ML IV SCH (04:10)
[2018-11-06 04:14] LABS: Basophils % 0.1 % (0.0-0.8); Hematocrit 28.1 VOL% (42.0-52.0); Hemoglobin 9.1 GM/DL (14.0-18.0); Immature Granulocytes % 0.6 %; Immature Granulocytes Absolute 0.09 #; Lymphocytes # 0.5 10*3/uL (1.4-4.0); Lymphocytes % 3.6 % (21.2-54.2); Mean Corpuscular HGB Conc 32.4 GM/DL (32-36); Mean Corpuscular Volume 95.9 FL (87-102); Mean Platelet Volume 10.5 FL (9.6-12.0); NRBC # 0.03 10*3/uL; Neutrophils % 88.7 % (38.7-73.9); Platelet Count 147 T/CUMM (130-400); Red Blood Count 2.93 MC/CUMM (3.8-5.5); Red Cell Distribution Width 15.8 % (9.3-17.3)
[2018-11-06] MEDS: AMIODARONE INJ 450 MG in DEXTROSE 5% 241 ML IV SCH ×2 (04:15→10:00)
[2018-11-06 04:38] LABS: Bilirubin,Direct 0.34 MG/DL (0.0-0.20); Bilirubin,Total 0.7 MG/DL (0.2-1.0); Calcium 7.7 MG/DL (8.5-10.1); Osmolality,Calculated 296.1 MOS/KG (273-304); Total Protein 6.2 G/DL (6.4-8.3)
[2018-11-06 04:39] LABS: Anisocytosis Slight; Lymphocytes 3 % (20-55); Segmented Neutrophils 93 % (50-85); Total Cells Counted 100
[2018-11-06 04:40] LABS: Microcytosis Slight; Polychromasia Slight
[2018-11-06 04:41] LABS: Ovalocytes Slight; Platelet Estimate Normal
[2018-11-06 05:40] LABS: CKMB % 3.7 %
[2018-11-06 05:43] LABS: Troponin I 23.5 NG/ML (0.00-0.045)
[2018-11-06 08:12] LABS: ABG Base Excess 1.5 MMOL/L (-2.5-2.5); ABG HCO3 24.3 MMOL/L (20-26); ABG Oxygen Saturation 97.4 % (95-100); ABG PH 7.498 (7.35-7.45); ABG PO2 109.3 MM HG (80-95); ABG TCO2 25.3 MMOL/L (23-27); Glucose Heart Surgery 155 MG/DL (74-106); Hemoglobin Heart Surgery 11.4 G/DL (14.0-18.0); Potassium Heart/CVR 5.7 MMOL/L (3.5-5.1)
[2018-11-06] MEDS: CEFUROXIME INJ 1,500 MG in SYRINGE 1 EACH IV SCH ×2 (08:15→21:01)
[2018-11-06] MEDS: INSULIN REGULAR 100 UNIT/ML SUBCUT SCH ×4 (08:30→20:50)
[2018-11-06] MEDS: CHLORHEXIDINE 0.12% ORAL RINSE 60 ML BOTTLE SWISH/SPIT SCH ×2 (08:35→21:05)
[2018-11-06] MEDS: DORZOLAMIDE/TIMOLOL OPH SOLN 10 ML BOTTLE BOTH EYES SCH ×2 (08:47→21:03)
[2018-11-06] MEDS ORDERED: LIDOCAINE 100 MG/5 ML SYRINGE IV ONE ×2 (09:21→16:30)
[2018-11-06] MEDS ORDERED: LIDOCAINE 100 MG/5 ML SYRINGE ONE ×2 (09:22→16:34)
[2018-11-06] MEDS ORDERED: LIDOCAINE DRIP 2,000 MG/250 ML PREMIX IV ONE (09:22)
[2018-11-06] MEDS ORDERED: LIDOCAINE DRIP 2,000 MG/250 ML PREMIX IV SCH (09:30)
[2018-11-06] MEDS ORDERED: MAGNESIUM SULF RIDER 2 GM in PREMIX 1 EACH IV STA (09:51)
[2018-11-06 09:57] LABS: ABG Base Excess 0.5 MMOL/L (-2.5-2.5); ABG HCO3 24.9 MMOL/L (20-26); ABG Oxygen Saturation 99.3 % (95-100); ABG PCO2 33.8 MM HG (35-48); Glucose Heart Surgery 217 MG/DL (74-106); Hematocrit Heart Surgery 27.9 PERCENT (42-52)
[2018-11-06 09:59] LABS: Potassium Heart/CVR 6.2 MMOL/L (3.5-5.1)
[2018-11-06] MEDS: ALBUMIN 5% 12.5 GM in PREMIX 1 EACH IV PRN ×5 (10:55→16:59)
[2018-11-06] MEDS: SODIUM CHLORIDE 0.45% 1,000 ML IV SCH ×3 (11:05→14:35)
[2018-11-06 11:35] LABS: Basophils % 0.1 % (0.0-0.8); Hematocrit 26.3 VOL% (42.0-52.0); Hemoglobin 8.7 GM/DL (14.0-18.0); Immature Granulocytes % 0.4 %; Immature Granulocytes Absolute 0.06 #; Lymphocytes # 0.7 10*3/uL (1.4-4.0); Lymphocytes % 4.3 % (21.2-54.2); Mean Corpuscular HGB Conc 33.1 GM/DL (32-36); Mean Corpuscular Volume 95.3 FL (87-102); Mean Platelet Volume 10.8 FL (9.6-12.0); Monocytes % 7.8 % (1.7-12.7); NRBC # 0.04 10*3/uL; Neutrophils % 87.4 % (38.7-73.9); Platelet Count 129 T/CUMM (130-400); Red Blood Count 2.76 MC/CUMM (3.8-5.5); Red Cell Distribution Width 16.2 % (9.3-17.3); White Blood Count 15.5 T/CUMM (4-12)
[2018-11-06 11:56] LABS: Band Neutrophils 4 % (0-10); Lymphocytes 5 % (20-55); Segmented Neutrophils 84 % (50-85); Total Cells Counted 100
[2018-11-06 11:57] LABS: Hypochromasia Slight; Microcytosis Slight; Platelet Estimate Normal
[2018-11-06 12:00] LABS: Calcium 8.1 MG/DL (8.5-10.1); Osmolality,Calculated 284.5 MOS/KG (273-304)
[2018-11-06] MEDS: ASCORBIC ACID 500 MG TABLET PO SCH ×2 (12:28→21:05)
[2018-11-06] MEDS: MORPHINE 4 MG/1 ML VIAL IV PRN (12:28)
[2018-11-06] MEDS ORDERED: AMIODARONE 150 MG/3 ML VIAL ONE (15:44)
[2018-11-06] MEDS ORDERED: AMIODARONE INJ 150 MG in DEXTROSE 5% 100 ML IV ONE (15:47)
[2018-11-06 15:55] LABS: ABG Base Excess 1.9 MMOL/L (-2.5-2.5); ABG HCO3 26.2 MMOL/L (20-26); ABG Oxygen Saturation 99.6 % (95-100); ABG PCO2 33.2 MM HG (35-48); ABG PH 7.484 (7.35-7.45); ABG TCO2 22.3 MMOL/L (23-27); Glucose Heart Surgery 127 MG/DL (74-106); Hematocrit Heart Surgery 33.4 PERCENT (42-52); Hemoglobin Heart Surgery 10.8 G/DL (14.0-18.0)
[2018-11-06 15:55] LABS: CKMB % 2.7 %
[2018-11-06 15:57] LABS: Troponin I 24.1 NG/ML (0.00-0.045)
[2018-11-06] MEDS ORDERED: PROPOFOL 1,000 MG/100 ML BOTTLE IV ONE (16:41)
[2018-11-06] MEDS ORDERED: PROPOFOL 200 MG/20 ML VIAL IV ONE (16:45)
[2018-11-06] MEDS ORDERED: PROPOFOL 1,000 MG/100 ML BOTTLE IV SCH (16:45)
[2018-11-06] MEDS ORDERED: AMIODARONE INJ 450 MG in DEXTROSE 5% 241 ML IV SCH (16:53)
[2018-11-06] MEDS: MIDAZOLAM 2 MG/2 ML VIAL IV PRN (20:38)
[2018-11-06] MEDS: LATANOPROST 0.005% OPH SOLN 2.5 ML BOTTLE LEFT EYE SCH (21:09)
[2018-11-06] MEDS: PHENYLEPHRINE INJ 160 MG in SODIUM CHLORIDE 0.9% 234 ML IV PRN (21:56)
[2018-11-06 23:31] VITALS: BP 71/19
== END 2018-11-06 23:35 | disposition expired | DRG 233 ==
LOC: N.ICU 13:09 → N.CL 13:51 → N.ICU 13:54 → N.CVR 11-05 07:11
PROVIDERS: ADMIT Internal Medicine Cardiovascular Disease; ATTEND Internal Medicine Cardiovascular Disease